=== PATIENT | female | born 2000 | race Caucasian/White ===

== ENCOUNTER 2022-03-15 22:53 | Observation (INO) | payer BC, SELFPAY ==
[2022-03-15 23:15] VITALS: BP 120/77; PULSE 90
[2022-03-15 23:17] VITALS: TEMP 36.5
[2022-03-15 23:27] LABS: Appearance Urine Slightly Cloudy (Clear); Bilirubin Urine Negative (Negative); Glucose Urine UA Negative (Negative); Ketones Urine Negative (Negative); Leukocyte Esterase Ur Trace LEU/UL (NEGATIVE); Nitrate Urine Negative (Negative); Protein Urine Negative (Negative); Urobilinogen Urine 0.2 mg/dL (<2.0); pH Urine 5.5 (5.0-9.0)
[2022-03-15 23:30] VITALS: BP 115/73; PULSE 87
[2022-03-15 23:30] LABS: Add Urine Microscopic? YES; Blood Urine Trace (Negative); Color Urine Light Yellow (Yellow)
[2022-03-15 23:34] VITALS: BMI 24.9
[2022-03-15 23:45] VITALS: BP 106/67; PULSE 79
--- NOTE | 2022-03-17 18:03 | PM.OBTRLD ---
OB - Triage/Final Diagnosis Visit Information Date of evaluation: 03/15/22 Reason for evaluation: threatened labor Comments/Additional reasons for admission: I have assessed the risk for this patient, Carley Wraymore, and determined that she would benefit from observation care. Evaluation Laboratory results: Laboratory Tests 03/15/22 23:17 Urine Color Light yellow Urine Appearance Slightly cloudy Urine pH 5.5 [address] [place] 1.010 Urine Protein Negative Urine Glucose (UA) Negative Urine Ketones Negative Ur Blood (Man) Trace Urine Nitrate Negative Urine Bilirubin Negative Urine Urobilinogen 0.2 Ur Leukocyte Esterase Trace H
== END 2022-03-16 00:10 | disposition home or self-care (01) ==
PROVIDERS: Advanced Practice Midwife; Admitting Provider Obstetrics & Gynecology; Visit Provider Obstetrics & Gynecology
DX: O47.03 False labor before 37 completed weeks of gestation, third trimester (principal); Z3A.29 29 weeks gestation of pregnancy
CPT/HCPCS: 81001; 87086; 87088; 87106; G0378; G0379

== ENCOUNTER 2022-05-20 05:56 | Inpatient (IN) | payer BC, SELFPAY ==
[2022-05-20] VITALS (77 sets, daily range): BP systolic 94–140; BP diastolic 46–96; PULSE 78–233; RESP 18; TEMP 36.6–37.2; O2SAT 80–100; BMI 28.8
--- NOTE | 2022-05-20 06:24 | LDADM ---
This patient, Carley Renteria, was admitted to Labor/Delivery/Recovery 104 on 05/20/22 at 05:56. Plans for labor, pain management and were discussed with patient. Patient/family oriented to hospital policies and general routines including ID bracelet, bed and alarms, visiting hours, pain management, procedures, bathroom and other care routines, personal items, smoking policy, room service/diet and guest tray routines, security routines, and visiting hours. Patient/Family are encouraged to report perceived risks to care and to ask questions if they do not understand what they are told or what they should do. See OBIX for further documentation.
[2022-05-20 06:58] LABS: Basophils Absolute Auto 0.1 K/mm3 (0.0-0.1); Basophils Percent Auto 0.5 % (0.2-1.2); Eosinophils Absolute Auto 0.1 K/mm3 (0-0.3); Eosinophils Percent Auto 1.3 % (0-4.4); Hematocrit 32.9 % (37.0-47.0); Hemoglobin 10.8 g/dL (12.0-15.0); Immature Granulocyte Absolute 0.06 K/mm3 (0.00-0.031); Immature Granulocyte Percent A 0.6 % (0-0.5); Lymphocytes Absolute Auto 2.05 K/mm3 (0.9-3.2); Lymphocytes Percent Auto 20.2 % (18.3-44.2); Mean Corpuscular HGB Conc 32.8 g/dl (32-36); Mean Corpuscular Hemoglobin 27.6 pg (26-34); Mean Corpuscular Volume 83.9 fl (80-100); Mean Platelet Volume 11.4 fl (7.4-10.4); Monocytes Absolute Auto 0.8 K/mm3 (0.1-0.6); Monocytes Percent Auto 7.9 % (2.6-8.5); Neutrophils Absolute Auto 7.1 K/mm3 (1.3-6.7); Neutrophils Percent Auto 69.5 % (45.5-73.1); Platelet Count Result 194 k/mm3 (150-375); Red Blood Count 3.92 M/mm3 (4.2-5.4); Red Cell Distribution Width 13.1 % (11.5-14.5); White Blood Count 10.2 K/mm3 (4.5-10.0)
[2022-05-20] MEDS: LACTATED RINGERS 1,000 ML 125 ML IV CONT ×3 (07:15→12:39)
[2022-05-20] MEDS: OXYTOCIN 30 UNITS/NS 500 ML 30 UNITS/500 ML BAG 6 UNITS IV CONT (07:16)
--- NOTE | 2022-05-20 07:27 | WPDHPUPDATE1 ---
History and Physical Update Update Date/Time: 05/20/22 07:27This patient is a 22-year-old 1 at 39 weeks gestation presents for elective induction of labor. Pitocin has been initiated. Artificial rupture membranes was performed. Clear fluid, 2 cm/ 60%/ -2 There was reassuring heart tones. Expectant management. History and Physical has been reviewed, including an updated exam of the patient. There are NO changes in the patient's condition. Risks, benefits, and alternatives have been discussed and questions answered. Patient agrees to proceed with procedure.
[2022-05-20 08:03] LABS: HIV 1/2 Ab P24 Ag Result Negative (Negative)
[2022-05-20 11:11] LABS: Amphetamine Screen Urine Negative (Negative); Barbiturate Screen Urine Negative (Negative); Benzodiazepines Screen Urine Negative (Negative); Cannabinoid Screen Urine Negative (Negative); Cocaine Screen Urine Negative (Negative); Methadone Screen Urine Negative (Negative); Opiate Screen Urine Negative (Negative); Phencyclidine Screen Urine Negative (Negative)
[2022-05-20] MEDS: fentaNYL CITRATE INJ (*CRX) 100 MCG/2 ML VIAL IV PUSH (11:42)
--- NOTE | 2022-05-20 12:08 | WPDANESEPP ---
Anes - Eval Pre Procedure Procedure: labor pain management Date/Time: 05/20/22 12:08 Surgeon: Flako Preop Diagnosis: pain during labor Pre Op Diagnosis: IOL Patient Data Age: 22 Gender: F Height: 1.65 m Weight: 78.5 kg Last Vital Signs Temp 98.4 F 05/20/22 09:00 Pulse 88 05/20/22 12:00 BP 128/79 05/20/22 12:00 Pulse Ox 100 05/20/22 06:26 O2 Del Method Room Air 05/20/22 06:22 Allergies Allergy/AdvReac Type Severity Reaction Status Date / Time No Known Allergies Allergy Verified 04/28/22 12:35 Home Medications Medication Instructions Recorded Confirmed Type vit no.95-ferrous 1 tablet PO DAILY 03/16/22 05/20/22 History fumarate 28 mg-folic acid 800 mcg tablet () Laboratory Tests 05/20/22 05/20/22 05/20/22 06:51 06:51 06:51 WBC 10.2 K/mm3 H K/mm3 (4.5-10.0) RBC 3.92 M/mm3 L M/mm3 (4.2-5.4) Hgb 10.8 g/dL L g/dL (12.0-15.0) Hct 32.9 % L % (37.0-47.0) MCV 83.9 fl fl (80-100) MCH 27.6 pg pg (26-34) MCHC 32.8 g/dl g/dl (32-36) RDW 13.1 % % (11.5-14.5) Plt Count 194 k/mm3 k/mm3 (150-375) MPV 11.4 fl H fl (7.4-10.4) Immature Gran % (Auto) 0.6 % H % (0-0.5) Neut % (Auto) 69.5 % % (45.5-73.1) Lymph % (Auto) 20.2 % % (18.3-44.2) [place] % (Auto) 7.9 % % (2.6-8.5) Eos % (Auto) 1.3 % % (0-4.4) Baso % (Auto) 0.5 % % (0.2-1.2) Lymph # (Auto) 2.05 K/mm3 K/mm3 (0.9-3.2) [place] # (Auto) 0.8 K/mm3 H K/mm3 (0.1-0.6) Eos # (Auto) 0.1 K/mm3 K/mm3 (0-0.3) Baso # (Auto) 0.1 K/mm3 K/mm3 (0.0-0.1) Abs Immat Gran (auto) 0.06 K/mm3 H K/mm3 (0.00-0.031) Absolute Neuts (auto) 7.1 K/mm3 H K/mm3 (1.3-6.7) Absolute Nucleated RBC 0.0 K/mm3 K/mm3 (0.0-0.012) Nucleated RBC % 0.0 % % (0.0-0.2) Urine Opiates Screen Urine Methadone Screen Ur Barbiturates Screen Ur Phencyclidine Scrn Ur Amphetamine Screen U Benzodiazepines Scrn Urine Cocaine Screen U Cannabinoids Screen RPR Pending HIV 1&2 Ab/P24 Ag 4thGn Negative (Negative) Blood Type Antibody Screen 05/20/22 05/20/22 06:51 10:26 WBC RBC Hgb Hct MCV MCH MCHC RDW Plt Count MPV Immature Gran % (Auto) Neut % (Auto) Lymph % (Auto) [place] % (Auto) Eos % (Auto) Baso % (Auto) Lymph # (Auto) [place] # (Auto) Eos # (Auto) Baso # (Auto) Abs Immat Gran (auto) Absolute Neuts (auto) Absolute Nucleated RBC Nucleated RBC % Urine Opiates Screen Negative (Negative) Urine Methadone Screen Negative (Negative) Ur Barbiturates Screen Negative (Negative) Ur Phencyclidine Scrn Negative (Negative) Ur Amphetamine Screen Negative (Negative) U Benzodiazepines Scrn Negative (Negative) Urine Cocaine Screen Negative (Negative) U Cannabinoids Screen Negative (Negative) RPR HIV 1&2 Ab/P24 Ag 4thGn Blood Type O Positive Antibody Screen Negative Patient hx anesthesia problems: none Family hx anesthesia problems: none Results Review: All pre-operative results and documents have been reviewed as part of the pre-operative evaluation. [facility] Family History Family History (Updated 04/28/22 @ 12:36 by Beatriz Le RN) Mother History of blood clots Social History Social History Smoking status: Never smoker Substance use: former Last use: last December 2021 Spiritual care concerns: No Exam
[2022-05-20 12:34] LABS: Rapid Plasma Reagin Non-Reactive (NonReactive)
--- NOTE | 2022-05-20 14:53 | PM.OBPRVD ---
OB - Delivery Note Procedure Delivery date: 05/20/22 Procedure: Induction method: AROM and Per Pitocin Protocol Delivery monitor: External FHT and External Uterine Route of delivery: Laceration Description: Perineal - 2nd Degree Delivery repair: vicryl Specimen: No Quantitative Blood Loss (ml): 45 [place] Baby Date of : 05/20/22 Time of : 14:55 Weeks of gestation at delivery: 39 Weight (pounds): 7 Weight (ounces): 3 score one minute: 8 score five minutes: 9
--- NOTE | 2022-05-20 17:25 | OBPPTRN ---
Patient transferred to post room # 285 via wheelchair @0194. Support person present. Oriented to unit, room, information board, rooming in, admission packet and security measures. Patient verbalizes understanding.
[2022-05-20] MEDS: IBUPROFEN 600 MG TABLET PO (18:56)
[2022-05-20] MEDS: BENZOCAINE 20% AER SPR (*SP) 56 GM CAN 1 SPRAY TOPICAL (18:57)
[2022-05-20] MEDS: WITCH HAZEL 40 PADS 1 PAD TOPICAL (18:57)
--- NOTE | 2022-05-20 19:30 | PC.NURSE ---
Second bag of pitocin was never scanned but was running when I came on for my shift at 1800. Pitocin done infusing at 1930 and pt was saline locked.
[2022-05-21] VITALS: BP 101/57; PULSE 84; RESP 16; TEMP 36.8
[2022-05-21 04:10] VITALS: BP 128/88; PULSE 92; RESP 16; TEMP 36.9
[2022-05-21] MEDS: ACETAMINOPHEN 325 MG TABLET 650 MG PO ×2 (04:25→21:28)
[2022-05-21 05:14] LABS: Hematocrit 33.7 % (37.0-47.0); Hemoglobin 10.7 g/dL (12.0-15.0)
--- NOTE | 2022-05-21 07:16 | PM.OBPNVD ---
OB - PN: Subj Subjective Date/time seen: 05/21/22 07:16 Patient comments: no complaints, pain well controlled, incisional pain, tolerating diet and flatus present OB - PN: Obj Data Labs CBC & Chem 7: 05/21/22 04:17 Labs: Laboratory Results - last 24 hr 05/20/22 05/20/22 05/20/22 06:51 06:51 06:51 Hgb Hct Urine Opiates Screen Urine Methadone Screen Ur Barbiturates Screen Ur Phencyclidine Scrn Ur Amphetamine Screen U Benzodiazepines Scrn Urine Cocaine Screen U Cannabinoids Screen RPR Non-reactive HIV 1&2 Ab/P24 Ag 4thGn Negative Blood Type O Positive Antibody Screen Negative 05/20/22 05/21/22 10:26 04:17 Hgb 10.7 L Hct 33.7 L Urine Opiates Screen Negative Urine Methadone Screen Negative Ur Barbiturates Screen Negative Ur Phencyclidine Scrn Negative Ur Amphetamine Screen Negative U Benzodiazepines Scrn Negative Urine Cocaine Screen Negative U Cannabinoids Screen Negative RPR HIV 1&2 Ab/P24 Ag 4thGn Blood Type Antibody Screen OB - PN A/P Plan day: 1 Plan: routine care Comments: No problems, routine care Time Spent With Patient Time: Total time spent is greater than 50% in coordination of care (as documented) at patient's floor/unit and/or counseling patient: Exam Const: General: comfortable, no acute distress and alert Resp: Effort & Inspection: normal respiratory effort Auscultation: no crackles, no rales and no rhonchi Cardio: Rate: regular rate Heart sounds: no click, no murmurs and no rubs GI: Inspection: non-distended GI Palp: No Tenderness to palpation present (GI) Auscultation: normal bowel sounds Other: Incision - CDI Extrem: General: normal to inspection, no pedal edema and no calf tenderness
--- NOTE | 2022-05-21 07:18 | P.DS_ITS ---
DS: Admitting Diagnosis Discharge Date 05/21/22 Admitting Diagnosis term OB - DS: Summary OB Procedures : None OB Procedures Intrapartum: Spontaneous Vag Delivery OB Procedures: : None Time Spent with Patient Time attestation: Total time spent providing and/or coordinating discharge services: DS: Data Data Completed and Pending Labs on day of discharge: Labs from last 24 hours 05/21/22 05/20/22 05/20/22 04:17 10:26 06:51 Hgb 10.7 L Hct 33.7 L Urine Opiates Screen Negative Urine Methadone Screen Negative Ur Barbiturates Screen Negative Ur Phencyclidine Scrn Negative Ur Amphetamine Screen Negative U Benzodiazepines Scrn Negative Urine Cocaine Screen Negative U Cannabinoids Screen Negative RPR HIV 1&2 Ab/P24 Ag 4thGn Blood Type O Positive Antibody Screen Negative 05/20/22 05/20/22 06:51 06:51 Hgb Hct Urine Opiates Screen Urine Methadone Screen Ur Barbiturates Screen Ur Phencyclidine Scrn Ur Amphetamine Screen U Benzodiazepines Scrn Urine Cocaine Screen U Cannabinoids Screen RPR Non-reactive HIV 1&2 Ab/P24 Ag 4thGn Negative Blood Type Antibody Screen Discharge Plan Discharge Discharging Clinician: Lj Arriola Patient Disposition: Home, Self-Care Activity: pelvic rest Diet: regular Patient Instructions: Antibiotic Form Stand Alone Forms: General Discharge Information Follow-up/Referrals: Lj Arriola MD [Physician] - Discharge Medications: Continued PNV cmb#95-ferrous fumarate-FA [] 28 mg iron- 800 mcg Tablet 1 tablet PO DAILY Date of admission: 05/20/22 05:56 Primary Care Provider: PHYSICIAN,TURBINE MEASUREMENTS ENGINEER Admitting Provider: Lj Arriola Attending physician on admission: Lj Arriola Condition: Stable
[2022-05-21 07:30] VITALS: BP 107/73; PULSE 89; RESP 16; TEMP 36.6; O2SAT 99
[2022-05-21] MEDS: DOCUSATE SODIUM 100 MG CAPSULE PO ×2 (08:40→17:39)
[2022-05-21] MEDS: MULTIVIT/MIN/PREN/FOL AC/IRON TABLET 1 TAB PO (08:40)
--- NOTE | 2022-05-21 11:14 | PC.NURSE ---
[id number] Introductions were made, then consulted with patient to assess needs related to . Mother led the conversation with her?plans to feed?her infant and the?experience so far. Resources provided for inpatient and outpatient services using a resource guide and mom/baby guide. Mother voiced understanding of information and will call if there is a request for assistance.
--- NOTE | 2022-05-21 11:14 | PC.NURSE ---
[id number] Parents requested assistance with . RN consulted with patient to assess needs related to . Mother led the conversation with her experience feeding her so far. was circumcised this morning and the parents are having difficulty waking to breastfeed. Mother works well with her with encouragement and education. Encouraged understanding of the benefits of skin to skin (unwrapping and placing vertically on her chest), responsive feeding and how to watch for early feeding signs, frequency of feeding on demand about every 8-12 times in 24 hours (every 2-3 hours), milk production, duration of feeding, signs of adequate intake/output and how to record on the feeding sheet. Demonstrated techniques to stimulate to wake and breastfeed. Mother demonstrated understanding of hand expression to remove milk and encourage infant to wake and breastfeed. Reviewed positioning and ear, shoulder, hip alignment, supporting the breast, asymmetrical latch (off-center), and leading with the chin with a big open side gape. latched optimally to the left breast in football position for 5- 10 minutes with good suck/swallow ratios. Education given to parents of how to visualize suck/swallow ratios and listen for drinking at the breast. was able to maintain latch without discomfort to mother. Nipple care reviewed with optimal latch and good positioning. Reminding mother of comfort measures of healing with a warm and wet washcloth to rinse breast, then leave open to air-dry as needed. Reviewed good handwashing when or touching the breast/nipples to prevent infection. Mother is feeding appropriately for growth of and understands stimulating infant to eat if needed. has had appropriate feedings in the last 24 hours meets the outcomes for weight, output and jaundice at this time. Parents are planning to go home with their 1st infant at after 24 hours past delivery. Mother states she is confident to continue effectively her at home or when to call for assistance and denies any additional assistance or education at this time. Reinforced understanding of milk production, transition of milk, signs of adequate intake, prevention/relief of engorgement, responsive after visualizing feeding cues, the different methods of stimulating infant to breastfeed 2-3 hours after the start of the last feeding, community resources, medication information reviewed per [facility] and when to call a provider using the resource of the mom and baby guide/[facility] website. Resources used to facilitate learning were used with the visual handouts/ tool/mom and baby guide. The parents voiced understanding of responsive feedings, stimulating with skin to skin, hand expressed colostrum, touch, talking to to encourage if it has been 2 -3 hours since the start of the last , to call if does not latch or there is discomfort with . Reported to the primary RN.
[2022-05-21 11:54] VITALS: BP 112/77; PULSE 90; RESP 16; TEMP 36.4; O2SAT 99
--- NOTE | 2022-05-21 15:04 | WPDANLDPN2 ---
Anes-Prog Note L&D Date/Time: 05/21/22 15:04 Comfortable throughout: labor and delivery Neuraxial method: epidural Epidural/Spinal procedure site: clean & non-tender Neuro status: Neuro function grossly intact. Cardiovascular status: normal Respiratory status: normal Airway patency: baseline Mental status: baseline Post-Op hydration status: normal Vital Signs: Last Vital Signs Temp 36.4 C 05/21/22 11:54 Pulse 90 05/21/22 11:54 Resp 16 05/21/22 11:54 BP 112/77 05/21/22 11:54 Pulse Ox 99 05/21/22 11:54 O2 Del Method Room Air 05/20/22 19:00 Pain score (VAS): 10/19 I/O: Intake & Output 05/20/22 05/21/22 05/21/22 23:59 07:59 15:59 Intake Total 500 Output Total 25 Balance 475 Post-procedural complaints: none Patient feedback: Patient satisfied with anesthetic care.
[2022-05-21] MEDS: IBUPROFEN 600 MG TABLET PO (17:39)
[2022-05-21 17:46] VITALS: BP 121/92; PULSE 92; RESP 18; TEMP 36.2
[2022-05-21 20:50] VITALS: BP 120/81; PULSE 87; RESP 14; TEMP 36.5; O2SAT 99
--- NOTE | 2022-05-22 08:03 | PM.OBPNVD ---
OB - PN: Subj Subjective Date/time seen: 05/22/22 08:03 Patient comments: no complaints and pain well controlled baby status: doing well and nursing well OB - PN: Obj Data Labs CBC & Chem 7: 05/21/22 04:17 OB - PN A/P Plan day: 2 Plan: routine care and discharge home Time Spent With Patient Time: Total time spent is greater than 50% in coordination of care (as documented) at patient's floor/unit and/or counseling patient: Time with patient: less than 15 minutes Exam Narrative: NAD abdomen soft, nontender, fundus firm below the umbilicus Extremities nontender, 1+ edema
[2022-05-22] MEDS: DOCUSATE SODIUM 100 MG CAPSULE PO (08:05)
[2022-05-22] MEDS: MULTIVIT/MIN/PREN/FOL AC/IRON TABLET 1 TAB PO (08:05)
[2022-05-22 08:11] VITALS: BP 107/76; PULSE 82; RESP 16; TEMP 36.8; O2SAT 100
--- NOTE | 2022-05-22 11:40 | PC.NURSE ---
Patient viewed the discharge video Mother & Baby Care, The First Two Weeks . Patient was given the opportunity and encouraged to ask questions. Patient verbalized understanding of information shared and has been given the mother/baby guide for home reference.
[2022-05-24 10:31] VITALS: BP 130/79; PULSE 98; RESP 20; TEMP 36.8; O2SAT 99
--- NOTE | 2022-06-20 20:33 | P.DS_ITS ---
DS: Admitting Diagnosis Discharge Date 05/22/22 Admitting Diagnosis term OB - DS: Summary OB Procedures : None OB Procedures Intrapartum: Spontaneous Vag Delivery OB Procedures: : None Time Spent with Patient Time attestation: Total time spent providing and/or coordinating discharge services: Discharge Plan Discharge Attending physician on discharge: Nancy Mitchell Consulting providers: Leni Mondragon ; Agata Davies ; Nancy Mitchell Discharging Clinician: Lj Arriola Anticipated Discharge Date/Time: 05/22/22 08:03 Patient Disposition: Home, Self-Care Activity: pelvic rest Diet: regular Discharge Instructions: Education: Mom and Baby Guide Given to: Mother Follow-Up: Call your delivering provider's office for an appointment to be seen in: 6 Weeks Mom and baby should come to the [facility] for the follow-up appointment. Appointment Date/Time: May 24, 2022 at 10:00 am What to expect at your follow-up visit: Blood Pressure Check Physical Assessment Call [phone] if you are unable to keep your appointment time. BREAST CARE: * Wear a snug supportive bra. * For engorgement discomfort: Breast Feeding: * Apply warm moist washcloths * Express milk as needed to relieve engorgement * Wear loose clothing * For sore nipples: * Identify correct latch-on * Apply warm moist washcloths before and after nursing * Air dry nipples after nursing * May apply Lansinoh cream to nipples EPISIOTOMY/PERINEAL CARE: * Until bleeding stops, use your trudy bottle after urinating * Change your pad frequently throughout the day * You may take sitz baths several times a day (fill your bathtub with warm water and soak for 20 minutes.) Do NOT bathe in the water * No tub baths until seen by your physician - You may shower ACTIVITY: * Rest as much as possible. * Do not exercise or lift anything heavier than your baby (such as laundry or other children.) * Avoid stairs or driving as much as possible. * Do not put anything into the vagina. No douching, tampons, or sexual activity until seen by physician. NOTIFY PHYSICIAN IF YOU HAVE ANY QUESTIONS OR IF ANY OF THE FOLLOWING SYMPTOMS OCCUR: * If your episiotomy or incision becomes red, swollen, or more painful than what you have experienced in the hospital. * If your vaginal bleeding becomes foul smelling. * If your vaginal bleeding becomes more heavy than a period or if your bleeding changes from pink to bright red. However, you may pass an occasional walnut- sized clot once or twice for the first week . * If you experience a sharp, shooting pain in you calves. * If you discover a hard, reddened area on your breast or if you experience flu- like symptoms. DIET: * Eat regular, well-balanced meals. * Drink plenty of fluids daily. If , drink to thirst. Patient Instructions: Antibiotic Form, Vaginal Delivery (DC) Stand Alone Forms: General Discharge Information Follow-up/Referrals: Lj Arriola MD [Physician] - Discharge Medications: Continued PNV cmb#95-ferrous fumarate-FA [] 28 mg iron- 800 mcg Tablet 1 tablet PO DAILY Date of admission: 05/20/22 05:56 Primary Care Provider: PHYSICIAN,ALTERATION WORKER Admitting Provider: Lj Arriola Attending physician on admission: Lj Arriola Condition: Stable
== END 2022-05-22 12:57 | disposition home or self-care (01) | DRG 806 ==
LOC: ANHLDR 05:59 → ANHOB2 17:46
PROVIDERS: Admitting Provider Obstetrics & Gynecology; Visit Provider Obstetrics & Gynecology
DX: O43.123 Velamentous insertion of umbilical cord, third trimester (principal); E72.12 Methylenetetrahydrofolate reductase deficiency; Z37.0 Single live birth; O70.1 Second degree perineal laceration during delivery; O99.284 Endocrine, nutritional and metabolic diseases complicating childbirth; Z3A.39 39 weeks gestation of pregnancy
CPT/HCPCS: 36415; 80307; 85014; 85018; 85025; 86592; 86703; 86850; 86900; 86901; A9270; G0432; J2590; J2795; J3010; J7120

== ENCOUNTER 2024-03-30 05:42 | Inpatient (IN) | payer OTHER, SELFPAY ==
[2024-03-30] VITALS (18 sets, daily range): BP systolic 80–151; BP diastolic 56–90; PULSE 75–123; TEMP 36.5–36.8; BMI 23.6
--- NOTE | ~2024-03-30 | US_ITS ---
EXAMINATION: US OB limited DATE: 03/30/2024 07:55 INDICATION: demise. TECHNIQUE: Real-time ultrasound of the pelvis was performed. COMPARISON: None. FINDINGS: There is a single fetus in breech presentation. The placenta is anterior. There is no heart mo tion by M-mode or color Doppler. IMPRESSION: 1. demise. Reviewed, dictated and finalized at location A. IMPRESSION: 1. demise.
[2024-03-30 07:37] LABS: Basophils Absolute Auto 0.1 K/mm3 (0.0-0.1); Basophils Percent Auto 0.6 % (0.2-1.2); Eosinophils Absolute Auto 0.3 K/mm3 (0-0.3); Eosinophils Percent Auto 3.1 % (0-4.4); Hematocrit 37.1 % (37.0-47.0); Hemoglobin 12.4 g/dL (12.0-15.0); Immature Granulocyte Absolute 0.05 K/mm3 (0.00-0.031); Immature Granulocyte Percent A 0.6 % (0-0.5); Lymphocytes Absolute Auto 1.45 K/mm3 (0.9-3.2); Lymphocytes Percent Auto 18.3 % (18.3-44.2); Mean Corpuscular HGB Conc 33.4 g/dl (32-36); Mean Corpuscular Volume 89.6 fl (80-100); Mean Platelet Volume 11.1 fl (7.4-10.4); Monocytes Absolute Auto 0.4 K/mm3 (0.1-0.6); Monocytes Percent Auto 5.2 % (2.6-8.5); Neutrophils Absolute Auto 5.7 K/mm3 (1.3-6.7); Neutrophils Percent Auto 72.2 % (45.5-73.1); Platelet Count Result 195 k/mm3 (150-375); Red Blood Count 4.14 M/mm3 (4.2-5.4); Red Cell Distribution Width 13.3 % (11.5-14.5); White Blood Count 7.9 K/mm3 (4.5-10.0)
[2024-03-30 07:47] LABS: Hemoglobin A1C 4.5 % (<5.7)
--- NOTE | 2024-03-30 07:52 | PC.NURSE ---
BS u/s done to confirm no cardiac activity, no cardiac activity noted.
[2024-03-30 07:56] LABS: Amphetamine Screen Urine Negative (Negative); Barbiturate Screen Urine Negative (Negative); Benzodiazepines Screen Urine Negative (Negative); Cannabinoid Screen Urine Negative (Negative); Cocaine Screen Urine Negative (Negative); Methadone Screen Urine Negative (Negative); Opiate Screen Urine Negative (Negative); Phencyclidine Screen Urine Negative (Negative)
[2024-03-30] MEDS: miSOPROStol 200 MCG TABLET BUCCAL ×4 (08:10→20:10)
[2024-03-30 08:11] LABS: Free T4 Free Thyroxine 1.02 ng/mL (0.78-2.19)
[2024-03-30 08:22] LABS: Rubella IgG Antibody 61.1 IU/ML
[2024-03-30 14:05] LABS: Rapid Plasma Reagin Non-Reactive (NonReactive)
[2024-03-31] MEDS: miSOPROStol 200 MCG TABLET BUCCAL ×2 (00:13→04:36)
[2024-03-31] MEDS: fentaNYL CITRATE INJ (*CRX) 100 MCG/2 ML VIAL 50 MCG IV PUSH ×2 (00:48→02:35)
[2024-03-31 01:00] VITALS: TEMP 36.6
[2024-03-31 04:00] VITALS: TEMP 36.5
[2024-03-31] MEDS: fentaNYL CITRATE INJ (*CRX) 100 MCG/2 ML VIAL IV PUSH (04:04)
[2024-03-31 04:26] VITALS: BP 103/54; PULSE 85
--- NOTE | 2024-03-31 05:34 | PM.IMHP ---
H&P: HPI History of Present Illness Date/Time: 03/31/24 05:34 Chief Complaint: demise Narrative: 24-year-old 2 para 1001 at 21 weeks gestation with demise. Admitted for induction of labor. No complaints,. no contractions, no loss of fluid, no vaginal bleed. No nausea, vomiting, or fever, chills. In no chest pain or shortness of breath. Review of Systems Review of Systems: All systems reviewed & are unremarkable except as noted in HPI and below Constitutional: Constitutional: Denies chills, Denies fatigue, Denies fever(s) and Denies weakness Eyes: Eyes: Denies blurry vision, Denies change in vision, Denies loss of peripheral vision, Denies loss of vision, Denies other visual disturbances and Denies eye pain ENT: Denies vertigo, Denies dizziness, Denies hearing loss, Denies mouth pain, Denies nasal obstruction, Denies neck mass and Denies neck pain Cardiovascular: Cardiovascular: Denies chest pain, Denies diaphoresis, Denies syncope, Denies leg edema and Denies dyspnea Respiratory: Respiratory: Denies chest congestion, Denies cough, Denies hemoptysis, Denies dyspnea and Denies wheezing Gastrointestinal: Gastrointestinal: Denies abdominal pain, Denies constipation, Denies diarrhea, Denies nausea and Denies vomiting Genitourinary: Genitourinary: Denies hematuria, Denies change in libido, Denies nocturia, Denies genital lesions, Denies flank pain and Denies urinary urgency Musculoskeletal: Musculoskeletal: Denies abnormal gait, Denies back pain, Denies myalgias, Denies arthralgias, Denies joint swelling, Denies muscle weakness and Denies neck pain Integumentary/Breasts: Skin/Breast: Denies swelling, Denies breast pain, Denies breast mass, Denies dry skin, Denies nipple discharge, Denies unusual bruising and Denies jaundice Neurologic: Denies Neuro-related abnormal movements, Denies Abnormal speech present, Denies abnormal gait, Denies behavioral changes, Denies confusion, Denies vertigo, Denies dizziness, Denies syncope, Denies loss of vision, Denies memory loss, Denies convulsions and Denies weakness Psychiatric: Psychiatric: Denies abnormal sleep pattern, Denies behavioral changes, Denies change in libido, Denies confusion, Denies depression, Denies anhedonia and Denies memory loss Endocrine: Endocrine: Reports no additional endocrine complaints, Denies change in libido and Denies fatigue Hematologic/Lymphatic: Hematologic/Lymphatic: Reports no additional hematologic/lymphatic complaints Allergic/Immunologic: Allergic/Immunologic: Reports no additional allergic/immunologic complaints and Denies wheezing PMF Family History Family History Mother History of blood clots Social History Social History Smoking status: Never smoker Substance use: never Last use: last December 2021 Do You Feel Safe in your Home?: Yes Lack of Transportation: No Lack of Food: Never True Current Housing: I Have Housing Concerned About Future Housing: No Difficulty Paying Gas/Electric Bills: No Difficulty Paying for Meds: No Currently Unemployed: No Education: Trade/Vocational Certificate Difficulty w/ Childcare or Family Care: No Spiritual care concerns: No Meds Home Medications and Allergies Home Medications Medication Instructions Recorded Confirmed Type vit no.95-ferrous 1 tablet PO DAILY 03/16/22 05/20/22 History fumarate 28 mg-folic acid 800 mcg tablet () Allergies Allergy/AdvReac Type Severity Reaction Status Date / Time No Known Allergies Allergy Verified 04/28/22 12:35 Vital Signs Vital Signs - 24 hr 03/30/24 06:53 03/30/24 07:13 03/30/24 08:11 Temperature Pulse Rate 93 Blood Pressure 95/60 L Oxygen Delivery Room Air Room Air 03/30/24 08:13 03/30/24 08:29 03/30/24 08:45 Temperature 97.8 F Pulse Rate 99 86 Blood Pressure 124/74 80/57 L Oxygen Delivery 06
--- NOTE | 2024-03-31 05:41 | PM.OBPRVD ---
OB - Vaginal Delivery Note Procedure Delivery date: 03/31/24 Events: Other ( demise) Induction method: Per Misoprostol Protocol Delivery monitor: None Route of delivery: Episiotomy description: None Laceration Description: None Specimen: Yes Quantitative Blood Loss (ml): 100 Anesthesia type: IV narcotics Complications: No immediate complications Baby Date of : 03/31/24 Time of : 04:58 Weeks of gestation at delivery: 21 Infant gender: Female presentation: breech Cord Vessel Description: Nuchal Cord (X3) score one minute: 0 score five minutes: 0
--- NOTE | 2024-03-31 05:44 | PM.OBDSVD ---
DS: Admitting Diagnosis Discharge Date 03/31/2024 Admitting Diagnosis demise DS: Discharge Diagnosis Discharge Diagnosis (1) demise: Status: Acute OB - DS: Summary OB Procedures : None OB Procedures Intrapartum: Spontaneous Vag Delivery OB Procedures: : None Peripartum Data Laceration Description: None Episiotomy description: None Time Spent with Patient Time attestation: Total time spent providing and/or coordinating discharge services: DS: Data Data Completed and Pending Labs on day of discharge: Labs from last 24 hours 03/30/24 03/30/24 03/30/24 07:19 07:18 07:17 WBC 7.9 RBC 4.14 L Hgb 12.4 Hct 37.1 MCV 89.6 MCH 30.0 MCHC 33.4 RDW 13.3 Plt Count 195 MPV 11.1 H Immature Gran % (Auto) 0.6 H Neut % (Auto) 72.2 Lymph % (Auto) 18.3 [place] % (Auto) 5.2 Eos % (Auto) 3.1 Baso % (Auto) 0.6 Lymph # (Auto) 1.45 [place] # (Auto) 0.4 Eos # (Auto) 0.3 Baso # (Auto) 0.1 Abs Immat Gran (auto) 0.05 H Absolute Neuts (auto) 5.7 Absolute Nucleated RBC 0.000 Nucleated RBC % 0.0 LA PTT Screen Pending dRVVT Screen Pending Lupus Anticoag Interp Pending Hemoglobin A1c 4.5 TSH 2.920 Free T4 1.02 Urine Opiates Screen Negative Urine Methadone Screen Negative Ur Barbiturates Screen Negative Ur Phencyclidine Scrn Negative Ur Amphetamine Screen Negative U Benzodiazepines Scrn Negative Urine Cocaine Screen Negative U Cannabinoids Screen Negative Beta-2-GPI IgG Ab Pending Pending Beta-2-GPI IgA Ab Pending Pending Beta-2-GPI IgM Ab Pending Pending Phosphatidylserine Ab Pending Phosphatidylserine IgG Pending Phosphatidylserine IgA Pending Phosphatidylserine IgM Pending Anti-Cardiolipin IgG Ab Pending Pending Anti-Cardiolipin IgA Ab Pending Pending Anti-Cardiolipin IgM Ab Pending Pending RPR Non-reactive CMV IgG Ab Pending CMV IgM Ab Pending HSV I Specific Ab Pending HSV II Specific Ab Pending Parvovirus B19 IgG Intp Pending Parvovirus B19 IgM Intp Pending Rubella IgG Antibody 61.1 Toxoplasma IgG Ab Pending Toxoplasma IgM Ab Pending Add Miscellaneous Test Pending Blood Type O Positive Antibody Screen Negative Discharge Plan Discharge Discharging Clinician: Remy Arriola Patient Disposition: Home, Self-Care Activity: pelvic rest Diet: regular Patient Instructions: Antibiotic Form Stand Alone Forms: General Discharge Information Follow-up/Referrals: Remy Arriola MD [Physician] - Discharge Medications: Continued PNV [id number] [] 28 mg iron- 800 mcg Tablet 1 tablet PO DAILY Date of admission: 03/30/24 05:42 Primary Care Provider: PHYSICIAN,KARATE INSTRUCTOR Admitting Provider: Remy Arriola Attending physician on admission: Remy Arriola Condition: Stable
[2024-03-31] MEDS: OXYTOCIN 30 UNITS/NS 500 ML 30 UNITS/500 ML BAG 999 UNITS IV CONT (05:45)
[2024-03-31 07:40] VITALS: BP 106/56; PULSE 86
--- NOTE | 2024-03-31 07:47 | PC.NURSE ---
Dr. Arriola notified of patient wanting to go home, Dr Arriola okay with discharge.
[2024-04-01 03:14] LABS: Anti Cardio Antibody IgM <2.0 MPL-U/mL; Anti Cardiolipin Antibody IgA <2.0 APL-U/mL; Anti Cardiolipin Antibody IgG <2.0 GPL-U/mL
[2024-04-02 12:57] LABS: CMV IgG Antibody >10.00 U/mL; CMV IgM Antibody <30.00 AU/mL
[2024-04-02 14:53] LABS: Toxoplasma IgG Antibody <7.20 IU/mL; Toxoplasma IgM Antibody <8.00 AU/mL
[2024-04-02 19:28] LABS: Lupus dRVVT Screen 39 sec (< OR = 45); PTT-LA Screen 36 sec (< OR = 40)
[2024-04-02 23:30] LABS: PS/PT AB IgG <9 U (< OR = 30); PS/PT AB IgM 18 U (< OR = 30)
[2024-04-03 01:04] LABS: Anti Cardio Antibody IgM 2.8 MPL-U/mL; Anti Cardiolipin Antibody IgA <2.0 APL-U/mL; Anti Cardiolipin Antibody IgG <2.0 GPL-U/mL
== END 2024-03-31 08:09 | disposition home or self-care (01) | DRG 807 ==
PROVIDERS: Admitting Provider Obstetrics & Gynecology; Visit Provider Obstetrics & Gynecology
DX: O36.4XX0 Maternal care for intrauterine death, not applicable or unspecified (principal); Z37.1 Single stillbirth; Z3A.21 21 weeks gestation of pregnancy
CPT/HCPCS: 36415; 76815; 80307; 83036; 84439; 84443; 85025; 85613; 85730; 86146; 86147; 86592; 86644; 86645; 86695; 86696; 86747; 86762; 86777; 86850; 86900; 86901; 88307; A9270; J2590; J3010